=== PATIENT | female | born 1950 ===

== ENCOUNTER 2018-07-24 08:12 | Inpatient (IN) | payer MEDICARE ==
--- NOTE | 2018-07-17 09:14 | HP ---
AMENDED REPORT NOW INCLUDES DESIGNATED COSIGNER HISTORY AND PHYSICAL: DATE OF ADMISSION/SURGERY: 07/26/18 DATE OF OFFICE VISIT: 07/16/18 ATTENDING PROVIDER: Dr. Woodson * (DICTATED BY DIANDRA BALTAZAR) PROCEDURE: Right total hip arthroplasty. CHIEF COMPLAINT: Right hip pain. HISTORY OF PRESENT ILLNESS: Ms. Falcon is a 67-year-old female with complaints of right hip pain. She has failed conservative treatment and elected to proceed with a right total hip arthroplasty. PAST MEDICAL HISTORY: She has diabetes, diet controlled. PAST SURGICAL HISTORY: Tonsillectomy, and D and C. CURRENT MEDICATIONS: 1. CoQ10. 2. Turmeric. 3. Vitamin B complex. 4. Garlic. 5. Food enzyme. 5. [place] 3. 6. Milk thistle. 7. Vitamin C. 8. Gelatin. 9. Cinnamon. 10. Ultimate Green cap. ALLERGIES: No known drug allergies. FAMILY HISTORY: Diabetes, cancer, and COPD. SOCIAL HISTORY: She is a 67-year-old female. She lives with her son and daughter. She does not smoke or use drugs or alcohol. REVIEW OF SYSTEMS: A complete 14-point review of systems was reviewed with the patient. It was positive for her diabetes, which is controlled with diet. She denies history of DVT, PE, hepatitis, HIV or anesthesia problems. PHYSICAL EXAMINATION GENERAL: She is well-developed, well-nourished, in no acute distress. VITAL SIGNS: She stands 5 feet 2 inches tall, weighs pounds. Blood pressure is 142/82, heart rate is 67. HEENT: Normocephalic, atraumatic. NECK: Supple. No palpable lymph nodes. PULMONARY: The lungs are clear to auscultation bilaterally. CARDIO: Regular rate and rhythm. Strong S1, S2. ABDOMEN: Soft, nontender, nondistended. NEUROLOGICAL: She is alert and oriented x3. MUSCULOSKELETAL: Right lower extremity: The skin is intact. There are no open wounds or abrasions. She walks with an antalgic type gait favoring the right hip. She has decreased internal and external rotation of the right hip. She has 2+ dorsalis pedis pulse. She is able to dorsiflex and plantarflex and has intact sensation. ASSESSMENT AND PLAN: Ms. Terrie is a 67-year-old female with complaints of right hip pain. She has failed conservative treatment and elected to proceed with a right total hip arthroplasty. The surgery is scheduled for 07/26/[address] Woodson discussed the risks and benefits of the surgery at today's visit and all of her questions were answered. She will follow up with Dr. Woodson 2 weeks after the surgery. DIANDRA BALTAZAR [id number]/[facility] #: [id number] MTDD
[~2018-07-24 08:12] MED LIST: Acetaminophen IV 1GM/100ML * 1,000 MG/100 ML VIAL IVPB ONE; Buffered Lidocaine 1% SYRIN* 1 ML/SYRINGE INTRADERM ONE; Dexamethasone IV* 4 MG/ML 1 ML (4 MG) IV SLOW PU ONE; Famotidine IV* 10 MG/ML 2 ML (20 mg) IV ONE; Gabapentin CAP(*) 300 MG PO ONE; Lactated Ringers 1000 ML Bag* 1,000 ML IV SCH; Tranexamic Acid 1,000 MG in NS 0.9% 50 ML* (outpatient use) IV SCH; celeCOXIB CAP* 200 MG PO ONE
--- OUTSIDE RECORDS SUMMARY | 2018-07-24 08:16 | XMS REPORT | Continuity of Care Document ---
:1950 External Reference #:[id number] Author Name Amberly Tobin Care Team Providers Name Role Phone Cristiano Jean PA Primary Care Physician Unavailable Payers Date Identification Numbers Payment Provider Subscriber Policy Number: [id number] Medicare Madeline Falcon PayID: [id number] [address] [place] [address] Policy Number: [id number] [employer] Madeline Falcon PayID: [id number] [address] [place] [address] Advance Directives Description No Information Available Problems Active Problems Provider Date Localized, primary osteoarthritis of the pelvic Maeve Woodson M.D. Onset: region and thigh Family History Date Family Member(s) Observation Comments General Diabetes Social History Type Date Description Comments Sex Unknown Lives With Children Occupation Assembly Line Upholsterer ETOH Use Denies alcohol use Tobacco Use Start: Unknown End: Patient is a former smoker Unknown Smoking Status Reviewed: 07/16/18 Patient is a former smoker Exercise Type/Frequency Exercises sporadically Allergies, Adverse Reactions, Alerts Description No Known Drug Allergies Medications Active Medications SIG Qnty Indications Ordering Provider Date Coq10 Unknown Carbo Grabbers Unknown Turmeric Curcumin Unknown B Complex Unknown Garlic Unknown Food Enzyme Unknown [place] 3 Unknown Milk Thistle Unknown Vitamin C Unknown Gelatin Powder Unknown Cinnamon Unknown Ultimate Green Cap Unknown Immunizations Description No Information Available Vital Signs Date Vital Result Comment 07/16/2018 1:05pm Height 62 inches 5'2" Weight 174.00 lb Heart Rate 67 /min Respiratory Rate 16 /min Body Temperature 97.9 F O2 % BldC Oximetry 98 % BMI (Body Mass Index) 31.8 kg/m2 06/25/2018 3:41pm Height 61 inches 5'1" Weight 174.00 lb Heart Rate 80 /min BP Systolic 142 mmHg BP Diastolic 82 mmHg Pain Level 5 BMI (Body Mass Index) 32.9 kg/m2 Results Description No Information Available Procedures Description No Information Available Encounters Type Date Location Provider Dx Diagnosis Office Visit 06/25/2018 Orthopedic Maeve Woodson M25.551 [facility] in [facility] Pain in left hip M16.11 Unilateral primary osteoarthritis, right hip M16.12 Unilateral primary osteoarthritis, left hip Plan of Treatment Future Appointment(s):07/26/2018 1:15 pm [facility]:15 [facility] - [facility] 1:15 pm - [facility] - Maeve Woodson M.D.M25.551 Pain in right hipFollow up:Follow up: 2 weeks after [id number] Unilateral primary osteoarthritis, right hip
--- OUTSIDE RECORDS SUMMARY | 2018-07-24 08:16 | XMS REPORT | Continuity of Care Document ---
:1950 External Reference #:[id number] Author Name DIANDRA Diaz Address [address], [place] [address] Care Team Providers Name Role Phone Cristiano Jean PA Primary Care Physician Unavailable Payers Date Identification Numbers Payment Provider Subscriber Policy Number: [id number] Medicare Madeline Falcon PayID: [id number] [facility] [address] [place] [address] Advance Directives Description No Information Available Problems Active Problems Provider Date Localized, primary osteoarthritis of the pelvic Maevedavina Woodson M.D. 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 ETOH Use Denies alcohol use Tobacco Use Start: Unknown End: Patient is a former smoker Unknown Smoking Status Reviewed: 06/25/18 Patient is a former smoker Exercise Type/Frequency Exercises sporadically Allergies, Adverse Reactions, Alerts Description No Known Drug Allergies Medications Active Medications SIG Qnty Indications Ordering Provider Date Coq10 Unknown Carbo Grabbers Unknown Turmeric Curcumin Unknown B Complex Unknown Garlic Unknown Food Enzyme Unknown [place] 3 Unknown Milk Thistle Unknown Vitamin C Unknown Gelatin Powder Unknown Cinnamon Unknown Ultimate Green Cap Unknown Immunizations Description No Information Available Vital Signs Date Vital Result Comment 06/25/2018 3:41pm Height 61 inches 5'1" Weight 174.00 lb Heart Rate 80 /min BP Systolic 142 mmHg BP Diastolic 82 mmHg Pain Level 5 BMI (Body Mass Index) 32.9 kg/m2 Results Description No Information Available Procedures Description No Information Available Encounters Type Date Location Provider Dx Diagnosis Office Visit 06/25/2018 Orthopedic Maeve Woodson, M25.551 [facility].552 Pain in left hip M16.11 Unilateral primary osteoarthritis, right hip M16.12 Unilateral primary osteoarthritis, left hip Plan of Treatment Future Appointment(s):07/26/2018 1:30 pm - CRESCENCIO Renae at [facility]07/26/2018 1:30 pm - DIANDRA Diaz at [facility].07/26/2018 1:30 pm - Maeve Woodson M.D. at [facility].07/16/2018 1:00 pm - Mae[facility] Woodson M.D. at [facility]/25/2018 - Maeve Woodson M.D.M25.551 Pain in right hipFollow up:Follow up: 7-10 days before [id number] Pain in left hipM16.11 Unilateral primary osteoarthritis, right hipM16.12 Unilateral primary osteoarthritis, left hip
--- OUTSIDE RECORDS SUMMARY | 2018-07-24 08:16 | XMS REPORT | Continuity of Care Document ---
:1950 External Reference #:[id number] Author Name Amberly Tobin Care Team Providers Name Role Phone Cristiano Jean PA Primary Care Physician Unavailable Payers Date Identification Numbers Payment Provider Subscriber Policy Number: [id number] Medicare Madeline Falcon PayID: [id number] [facility] [address] [place] [address] Advance Directives Description No Information Available Problems Date Description Provider Status Onset: 06/25/2018 Localized, primary osteoarthritis of the Maevesally Woodson M.D. 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 ETOH Use Denies alcohol use Tobacco Use Start: Unknown End: Patient is a former smoker Unknown Smoking Status Reviewed: 06/25/18 Patient is a former smoker Exercise Type/Frequency Exercises sporadically Allergies, Adverse Reactions, Alerts Description No Known Drug Allergies Medications Medication Date Status Form Strength Qnty SIG Indications Ordering Provider Coq10 Active Unknown Carbo Grabbers Active Unknown Turmeric Curcumin Active Unknown B Complex Active Unknown Garlic Active Unknown Food Enzyme Active Unknown [place] 3 Active Unknown Milk Thistle Active Unknown Vitamin C Active Unknown Gelatin Powder Active Unknown Cinnamon Active Unknown Ultimate Green Active Unknown Cap Immunizations Description No Information Available Vital Signs [...] Pain in right hip 3:00p [facility] M25.552 Pain in left hip M16.11 Unilateral primary osteoarthritis, right hip M16.12 Unilateral primary osteoarthritis, left hip Plan of Treatment Future Appointment(s):07/16/2018 1:00 pm - [facility] - Maeve Woodson M.D.M25.551 Pain in right hipFollow up:Follow up: 7-10 days before [id number] Pain in left hipM16.11 Unilateral primary osteoarthritis, right hipM16.12 Unilateral primary osteoarthritis, left hip
[2018-07-24] MEDS ORDERED: celeCOXIB CAP* 100 MG ONE (08:54)
[2018-07-24] MEDS ORDERED: Dexamethasone IV* 4 MG/ML 1 ML (4 MG) ONE (08:54)
[2018-07-24] MEDS ORDERED: Gabapentin CAP(*) 300 MG ONE (08:54)
[2018-07-24] MEDS ORDERED: ceFAZolin 2 GM PREMIX in ORs 2 GM/50 ML BAG IVPB ONE (08:55)
[2018-07-24] MEDS ORDERED: Famotidine IV* 10 MG/ML 2 ML (20 mg) ONE (08:55)
[2018-07-24] MEDS ORDERED: Acetaminophen IV 1GM/100ML * 100 ML ONE (09:55)
[2018-07-24] MEDS ORDERED: fentaNYL* 50 MCG/ML 2 ML VIAL (100 MCG VIAL) ONE (10:09)
[2018-07-24] MEDS ORDERED: Midazolam* 1 MG/ML 5 ML VIAL (5 MG) ONE (10:09)
[2018-07-24] MEDS ORDERED: KETAMINE HCL* 50 MG/ML 10 ML VIAL ONE (10:09)
[2018-07-24] MEDS ORDERED: Propofol* 10 MG/ML 20 ML BTL ONE (10:10)
[2018-07-24] MEDS ORDERED: Ondansetron INJ* 2 MG/ML VIAL ONE ×2 (10:10→10:54)
[2018-07-24] MEDS ORDERED: Bupivacaine 0.5% SDV PF* 30ML VIAL ONE (10:10)
[2018-07-24] MEDS ORDERED: Ropivacaine (OR use only) 2 MG/ML 10 ML ONE (10:50)
[2018-07-24] MEDS ORDERED: ROPIVACAINE 5 MG/ML 30 ML BTL (0.5%) ONE (10:51)
[2018-07-24] MEDS ORDERED: Glycopyrrolate IV* 0.2 MG/ML 1 ML VIAL ONE (12:36)
[2018-07-24] MEDS ORDERED: Naloxone* 0.4 MG/ML 1 ML VIAL IV PRN (12:43)
[2018-07-24] MEDS ORDERED: fentaNYL* 50 MCG/ML 2 ML VIAL (100 MCG VIAL) IV PRN (12:43)
[2018-07-24] MEDS ORDERED: Ondansetron INJ* 2 MG/ML VIAL IV PRN ×2 (12:43→14:12)
[2018-07-24] MEDS ORDERED: DiMENhydriNATE IV* 50 MG/ML VIAL IV PUSH PRN (12:43)
[2018-07-24] MEDS ORDERED: Scopolamine 1.5 mg* PATCH TRANSDERM PRN (12:43)
[2018-07-24] MEDS ORDERED: HYDROmorphone INJ1* 1 MG/ML SYRINGE IV PRN (12:43)
[2018-07-24] MEDS ORDERED: Magnesium Hydroxide LIQ* 30 ML UDC PO PRN (14:12)
[2018-07-24] MEDS ORDERED: Cyclobenzaprine TAB* 10 MG PO PRN (14:12)
[2018-07-24] MEDS ORDERED: Morphine 4 MG/ML VIAL (1 ml) 4 MG/ML VIAL IV PRN (14:12)
[2018-07-24] MEDS ORDERED: Acetaminophen TAB* 325 MG PO PRN (14:12)
[2018-07-24] MEDS ORDERED: diPHENhydraMINE IV* 50 MG/ML 1 ml VIAL (BENADRYL) IV PRN (14:12)
[2018-07-24] MEDS ORDERED: oxyCODONE/Acetamin 5/325 MG* TAB PO PRN (14:12)
[2018-07-24] MEDS ORDERED: Bisacodyl SUPP* 10 MG SUPP PR PRN (14:12)
[2018-07-24] MEDS: Lactated Ringers 1000 ML Bag* 1,000 ML IV SCH (16:16)
--- NOTE | 2018-07-24 16:25 | PN ---
Progress Note - Progress Note Date of Service: 07/24/18 SOAP: Pt doing well. She is laying in PACU being prepared for transfer to the floor. She states pain is well controlled. denies any chest pain, SOB, nausea or vomiting. S/P RTHA
[2018-07-24] MEDS: oxyCODONE TAB* 5 MG TAB PO PRN ×2 (17:24→23:37)
--- NOTE | 2018-07-24 18:20 | OP ---
Operative Report - Blank - Operative Report Date of Operation: 07/24/18 Note: JENNIFER PADILLA 1950 Date Of Surgery: 07/24/18 Maeve Woodson MD [employer]s Examiner: Hieu JIM did help throughout the procedure with preparation of the hip, wound retraction, manipulation of the hip, and wound closure. Anesthesiologist: Abhay scott MD Anesthesia Type: General Preoperative Diagnosis: Right severe degenerative osteoarthritis of the hip Postoperative Diagnosis: As above Procedure Performed: Right Total Hip Arthroplasty Complications: None Specimen: Femoral head and acetabular reamings sent to pathology. Hardware used: This is uncemented [place] total hip arthroplasty hardware for the femur a size 5 accolade II with 127 degree neck femoral component, for the acetabulum a size 46C trident II tritanium cluster hole shell, a single 20 mm screw was used, for the insert a size 32C trident x3 polyethylene insert, and for the femoral head a size 32 - 4 biolox ceramic V40 femoral head. Brief history/Indication: JENNIFER PADILLA was known in clinic and had a history of severe right hip pain. She failed conservative treatment with anti- inflammatories, pain pills, intra-articular injections and physical therapy. She elected to undergo right total hip arthroplasty due to continued pain and decreased quality of life. Radiographs showed severe end stage osteoarthritis of the hip with bone on bone contact. Informed consent was obtained from the patient. She understood the risks of surgery included but were not limited to: bleeding, infection, damage to nearby structures, intraoperative fracture, nerve palsy, failure of the hardware, early loosening, stiffness or loss of motion, dislocation, leg length discrepancy, anesthesia complications, stroke, heart attack, blood clot and . She wished to proceed. Intra-Operative findings: Intraoperatively the patient was noted to have severe loss of cartilage of the acetabulum and femoral head. Description of the Procedure: JENNIFER PADILLA was identified in the preanesthesia unit. Her right hip was marked as the correct operative side. Informed consent was signed and placed in the chart. The patient was taken to the operating room and placed under anesthesia without complication. A higuera catheter was placed. The patient was placed on the peg board with all bony prominences well padded. The right lower extremity was prepped and draped in the usual sterile fashion. Preoperative time -out was made to correctly identify the patient, side and site. Appropriate intraoperative antibiotics were given within one hour of incision. A standard posterior incision was made and carried sharply down to the lateral fascia. A new 10 blade was used to make an incision in the fascia in line with the skin incision. A charnley retractor was placed. The piriformis and conjoined tendons were identified and elevated off the posterolateral femur using electrocautery. These were tagged with number 5 Ethibond. Next electrocautery was used to make a posterolateral capsular flap and this was tagged with number 5 Ethibonds. The hip was carefully dislocated. Lesser trochanter to the center of the femoral head was measured at 58 mm. The oscillating saw was used to make the femoral neck cut. The femoral head was carefully removed. The femur was retracted anteriorly and the acetabular retractors were placed. Long-handled knife was used to sharply remove any remaining labrum from the acetabular rim. The acetabulum was sequentially reamed up to a size 45. A bleeding subchondral bone bed was obtained. A trial cup was placed and had excellent fit and stability. A 46 C trident II tritanium cup was placed and had excellent stability with appropriate anteversion and abduction angle. A single 20 mm 6.5 low profile hex screw was placed. A size 32 C trident x3 polyethylene liner was impacted into the acetabular shell. The liner was checked for stability and was stable. Next attention was turned to preparation of the femoral canal. A canal finder was used to enter the proximal femur. The femoral canal was sequentially broached up to a size 5 femoral broach trial. A trial neck and 32 - 4 trial femoral head was chosen. Lesser trochanter to center of the femoral head measurement was satisfactory. The hip was reduced and taken through a range of motion. The hip was stable in all positions with good soft tissue tension and appropriate leg lengths. The hip was dislocated and all trials were removed. The final implant chosen was a accolade II size 5 with 127 degree neck. This stem was impacted into the femoral canal without difficulty. The stem was stable with appropriate anteversion. The femoral head chosen was a 32 - 4 biolox ceramic head. The head was impacted onto the femoral neck without difficulty. The final lesser trochanter to center of the femoral head measurement was satisfactory. The hip was reduced and taken through a range of motion. The hip was stable in all positions with good soft tissue tension and appropriate leg lengths. The hip was copiously irrigated with sterile saline. The previously tagged capsule and tendons were repaired to the posterolateral femur through two trochanteric drill holes. The lateral fascia layer was closed using number 1 vicryls. The rest of the incision was closed in a layered fashion using 0 and 2-0 vicryls. The skin was closed using 3-0 monocryl suture and Dermabond. Sterile adaptic, 4x4s and paper tape was used to cover the incision. The patients anesthesia was reversed without difficulty. She was taken to the PACU in stable condition. Intended weight-bearing will be as tolerated with posterior hip precautions.
[2018-07-24] MEDS: ceFAZolin 1 GM ADVAN(*) 1 GM in NS 0.9% 50 ML* 50 ML IVPB SCH (19:40)
[2018-07-24] MEDS: Magnesium Hydroxide LIQ* 30 ML UDC PO SCH (20:50)
[2018-07-24] MEDS: Docusate CAP* 100 MG PO SCH (20:51)
[2018-07-24] MEDS: oxyCODONE/Acetamin 5/325 MG* TAB PO PRN (20:51)
[2018-07-25] MEDS: Lactated Ringers 1000 ML Bag* 1,000 ML IV SCH (03:18)
[2018-07-25] MEDS: oxyCODONE/Acetamin 5/325 MG* TAB PO PRN ×2 (03:41→19:02)
[2018-07-25] MEDS: ceFAZolin 1 GM ADVAN(*) 1 GM in NS 0.9% 50 ML* 50 ML IVPB SCH ×2 (03:41→11:38)
[2018-07-25 05:40] LABS: Hematocrit 36 % (35-47); Hemoglobin 11.9 g/dL (12.0-16.0); Mean Platelet Volume 8.6 fL (7.4-10.4); Platelet Count 269 10^3/uL (150-450)
[2018-07-25 06:03] LABS: BUN/Creatinine Ratio 19.7 (8-20); Calcium 9.6 mg/dL (8.6-10.3); EGFR African American 98.8 (>60); EGFR Non-African American 81.6 (>60); Potassium 4.2 mmol/L (3.5-5.0)
[2018-07-25] MEDS: oxyCODONE TAB* 5 MG TAB PO PRN ×4 (06:19→23:33)
[2018-07-25] MEDS: Vitamin THERAPEUTIC TAB PO SCH (08:16)
[2018-07-25] MEDS: Apixaban* 2.5 MG TAB PO SCH ×2 (08:16→21:20)
[2018-07-25] MEDS: Magnesium Hydroxide LIQ* 30 ML UDC PO SCH ×2 (08:16→21:20)
[2018-07-25] MEDS: Docusate CAP* 100 MG PO SCH ×2 (08:16→21:20)
--- NOTE | 2018-07-25 10:39 | PN ---
Progress Note - Progress Note Date of Service: 07/25/18 SOAP: Subjective: [] Pt seen at bedside. She feels well without dizziness, nausea, SOB or CP. Right hip pain is well controlled. Objective: []General: NAD, appears well RLE: Right hip dressing CDI, thigh soft, DF/PF intact, sensation intact to light touch distally, DP2+ Calves supple and nontender without erythema, edema or palpable cords Assessment: []POD 1 sp RTH Plan: []WBAT PT/OT, posterior hip precautions eliquis 2.5 mg po BID x 30 days post op DC home today or tomorrow, has not yet met PT goals. IF DC today will change dressing prior to leaving Vital Signs Temp 98.5 F 07/25/18 07:23 Pulse 58 07/25/18 07:23 Resp 18 07/25/18 09:50 BP 115/57 07/25/18 07:23 Pulse Ox 95 07/25/18 08:00 Intake & Output 07/24/18 07/25/18 07/25/18 18:59 06:59 18:59 Intake Total 1550 2738 320 Output Total 300 2155 Balance 1250 583 320 Weight 175 lb Intake: IV Fluids 1550 1018 ABX - CEFAZOLIN 53 LR 1500 965 NS 50ML, Cefazolin 2G 50 Oral 1720 320 Output: [place] 300 2155 Other: # Bowel Movements 0 Laboratory Last Values Hgb 11.9 g/dL (12.0-16.0) L 07/25/18 05:13 Hct 36 % (35-47) 07/25/18 05:13 Plt Count 269 10^3/uL (150-450) 07/25/18 05:13 MPV 8.6 fL (7.4-10.4) 07/25/18 05:13 Sodium 138 mmol/L (135-145) 07/25/18 05:13 Potassium 4.2 mmol/L (3.5-5.0) 07/25/18 05:13 Chloride 105 mmol/L (101-111) 07/25/18 05:13 Carbon Dioxide 28 mmol/L (22-32) 07/25/18 05:13 Anion Gap 5 mmol/L (2-11) 07/25/18 05:13 BUN 14 mg/dL (6-24) 07/25/18 05:13 Creatinine 0.71 mg/dL (0.51-0.95) 07/25/18 05:13 Est GFR ( Amer) 98.8 (>60) 07/25/18 05:13 Est GFR (Non-Af Amer) 81.6 (>60) 07/25/18 05:13 BUN/Creatinine Ratio 19.7 (8-20) 07/25/18 05:13 Glucose 179 mg/dL (70-100) H 07/25/18 05:13 POC Glucose (mg/dL) 159 mg/dL (70-100) H 07/24/18 09:19 Calcium 9.6 mg/dL (8.6-10.3) 07/25/18 05:13
[2018-07-26] MEDS: oxyCODONE/Acetamin 5/325 MG* TAB PO PRN ×3 (03:17→12:29)
[2018-07-26 06:25] LABS: Hematocrit 35 % (35-47); Hemoglobin 11.4 g/dL (12.0-16.0); Mean Platelet Volume 8.2 fL (7.4-10.4); Platelet Count 264 10^3/uL (150-450)
[2018-07-26] MEDS: Docusate CAP* 100 MG PO SCH (08:09)
[2018-07-26] MEDS: Vitamin THERAPEUTIC TAB PO SCH (08:09)
[2018-07-26] MEDS: Apixaban* 2.5 MG TAB PO SCH (08:09)
[2018-07-26] MEDS: Magnesium Hydroxide LIQ* 30 ML UDC PO SCH (08:09)
--- NOTE | 2018-07-26 09:58 | DS ---
Orthopedic Discharge Summary - Discharge Summary Date of Admission:07/24/18 Date of Discharge: 07/26/18 Date of Surgery: 07/24/18 Attending Orthopedic Provider: Dr Woodson Pre-operative Diagnosis: right hip arthritis Operative Procedure: right total hip arthroplasty Disposition of Patient: home Condition of Patient: stable History: JENNIFER PADILLA is a 67 year old F with years of increasingly severe right hip pain. Patient has failed conservative management and has elected to undergo a right total hip replacement Hospital Course: JENNIFER was admitted to [facility] on 07/24/18. Patient underwent a right total hip replacement without complication followed by a brief recovery in PACU and transfer to the Short Stay Surgical Unit in stable condition. Our hospitalist service, physical therapy and occupational therapy also participated in this patients care. Post-op day 1: patient was alert and in no acute distress. Dressing was clean, dry and intact. Operative extremity dorsiflexion and plantarflexion intact, sensation intact to light touch distally, DP2+. Post-op day two: dressing was changed, incision was clean , dry and intact. Patient was deemed to be medically and orthopedically stable for discharge. Physical therapy goals were met. Home Medications Medication Instructions Recorded Confirmed Type Ascorbic Acid TAB* [Vitamin C 500 mg PO QAM 07/16/18 07/24/18 History TAB*] Carb Grabbers 2 cap PO DAILY PRN 07/16/18 07/24/18 History Cinnamon Balance 1 - 2 cap PO QAM 07/16/18 07/24/18 History Coq10 1 cap PO QAM 07/16/18 07/24/18 History Food Enzyme 1 cap PO QAM 07/16/18 07/24/18 History Garlic High Potency 1 - 2 tab PO QAM 07/16/18 07/24/18 History Gelatin Powder 1 Tbsp 1 tbsp PO QAM 07/16/18 07/24/18 History Lo Angela Fiber Tbsp 1 tbsp PO QAM 07/16/18 07/24/18 History Milk Thistle 175 mg PO QAM 07/16/18 07/24/18 History Super [place] 3 1 cap PO QAM 07/16/18 07/24/18 History Turmeric Root Extract [Turmeric 500 - 1,000 mg PO QAM 07/16/18 07/24/18 History Curcumin] Ultimate Green Zone 4 cap PO QAM 07/16/18 07/24/18 History Vitamin B Complex CAP* [B Complex 1 cap PO QAM 07/16/18 07/24/18 History CAP*] Liquid Iron PO DAILY 07/24/18 History Acetaminophen TAB* Tylenol TAB* 650 mg PO Q8H PRN tab 07/26/18 Rx Apixaban* [Eliquis*] 2.5 mg PO BID 30 Days #60 tab 07/26/18 Rx Docusate CAP* [Colace Cap*] 100 mg PO BID PRN #90 cap 07/26/18 Rx oxyCODONE/Acetamin 5/325 MG* 1 tab PO Q4H PRN tab 07/26/18 Rx [Percocet 5/325 TAB*] oxyCODONE/Acetamin 5/325 MG* 2 tab PO Q4H PRN #70 tab MDD 10 07/26/18 Rx [Percocet 5/325 TAB*] Discharge Instructions following Orthopedic Surgery: Activity: * Weight Bearing as tolerated * Continue physical therapy and occupational therapy exercises as shown * Home physical therapy Posterior hip precautions: do not bend at the waist past 90 degrees, do not squat, do not pigeon toe, do not cross your legs. Wound care: * OK to shower on post-op day 3, no bathing, swimming, or submerging wound. * Use gentle soap, pat dry. Cover with gauze, HERIBERTO wrap or tape. * Visiting home nurse to do wound checks. Call Orthopedic office for: * Increased drainage * Redness * Increased pain * Fever Go to ER with shortness of breath or chest pain. Diet: * Regular diet * Increase fluids and fiber to prevent constipation. * Continue to use stool softeners, call office if no bowel motion within 48 hours. Medications See Home Medication List in your packet for medications that you should take after discharge. DVT Prophylaxis: Eliquis Dosin.5 mg, 1 tab every 12 hours x 30 days. This medication increases bleeding tendency Pain Control: Percocet Dosin/325 mg 1-2 tabs by mouth every 4-6 hours as needed for pain. Maximum of 10 tabs per day. Hold for sedation. Wean off as soon as pain allows. Antibiotics are required prior to any dental work. FOLLOW UP: Follow up with Dr. [Chintan] Within 10-14 days, call for appointment Please call our office with any questions or concerns ([phone])
[2018-07-26 11:31] VITALS: BP 108/51
== END 2018-07-26 15:20 | disposition home health service (06) | DRG 470 ==
LOC: AA 08:12 → SSU 16:06
PROVIDERS: ADMIT Orthopaedic Surgery Adult Reconstructive Orthopaedic Surgery; ATTEND Orthopaedic Surgery Adult Reconstructive Orthopaedic Surgery
PROC: 0SR904A Replacement of Right Hip Joint with Ceramic on Polyethylene Synthetic Substitute, Uncemented, Open Approach (ICD-10-PCS; principal; 2018-07-24 11:15)
DX: M16.11 Unilateral primary osteoarthritis, right hip (principal); E11.9 Type 2 diabetes mellitus without complications; E66.9 Obesity, unspecified; Z83.3 Family history of diabetes mellitus; Z82.5 Family history of asthma and other chronic lower respiratory diseases; Z80.9 Family history of malignant neoplasm, unspecified; Z68.32 Body mass index [BMI] 32.0-32.9, adult
CPT/HCPCS: 36415; 72170; 80048; 85014; 85018; 85049; A9270-GY; G8978-GP-CL; G8979-GP-CI; G8987-GO-CI; G8988-GO-CH; G8989-GO-CI; J0690; J1100; J2250; J2405; J2704; J2795; J3010; J3490